=== PATIENT | female | born 1965 | race Caucasian/White ===

== ENCOUNTER 2023-02-21 02:57 | Emergency (ER) | payer MEDICAID ==
[~2023-02-21] VITALS: Ht 157.5 cm; Wt 56.0 kg
[2023-02-21 03:47] VITALS: BP 125/60; PULSE 106; RESP 18; TEMP 98.9; O2SAT 98
[2023-02-21 06:31] LABS: BASOPHILS % 0.4 % (0.0-2.0); EOSINOPHILS % 1.5 % (0.0-5.0); HEMATOCRIT. 44.4 % (36.0-48.0); HEMOGLOBIN. 14.7 g/dL (12.0-16.0); LYMPHOCYTES % 27.6 % (20.0-50.0); MEAN CORPUSCULAR HEMOGLOBIN 28.7 pg (28.0-32.0); MEAN CORPUSCULAR HGB CONC 33.1 g/dL (31.0-37.0); MEAN CORPUSCULAR VOLUME 86.5 fL (81.0-99.0); MEAN PLATELET VOLUME 8.9 fl (7.4-10.4); MONOCYTES % 6.3 % (2.0-8.0); NEUTROPHILS % 64.2 % (40.0-76.0); PLATELET 261 x1000/uL (130-400); RED BLOOD CELL COUNT 5.13 mill/uL (4.2-5.4); RED CELL DISTRIBUTION WIDTH 14.5 % (11.6-14.6)
[2023-02-21 06:35] LABS: CHLORIDE 107 mEq/L (98-107); INDEX HEMOLYSI 1 (1-3); INDEX ICTERIC 1 (1-4); INDEX LIPEMIC 1 (1-3); POTASSIUM 3.5 mEq/L (3.5-5.1); SODIUM 136 mEq/L (136-145)
[2023-02-21 06:50] LABS: ALANINE AMINOTRANSFERASE 30 IU/L (13-61); ALBUMIN 3.7 g/dL (3.4-5.0); ASPARTATE AMINOTRANSFERASE 22 IU/L (15-37); BILIRUBIN TOTAL 0.7 mg/dL (0.1-1.0); CALCIUM 8.9 mg/dL (8.5-10.1); CARBON DIOXIDE 26 mEq/L (21-32); CREATININE 0.4 mg/dL (0.6-1.3); GLUCOSE 137 mg/dL (70-105); PROTEIN TOTAL 7.6 g/dL (6.0-8.3); UREA NITROGEN BLOOD 9 mg/dL (7-21)
[2023-02-21 06:51] LABS: TROPONIN I HIGH SENSITIVITY < 4 ng/L (<54)
== END 2023-02-21 07:39 | disposition home or self-care (01) ==
LOC: ER 02:57
DX: I10 Essential (primary) hypertension (principal); F32.9 Major depressive disorder, single episode, unspecified; E11.9 Type 2 diabetes mellitus without complications; Z98.890 Other specified postprocedural states
CPT/HCPCS: 36415; 71045; 80053; 84484; 85025; 99284

== ENCOUNTER 2023-08-30 15:36 | Emergency (ER) | payer MEDICAID ==
[~2023-08-30] VITALS: Ht 157.5 cm; Wt 57.0 kg
[2023-08-30 15:59] VITALS: TEMP 98.2; O2SAT 97
[2023-08-30] MEDS: HYDROCODONE/ACETAMINOPHEN 5/325MG TABLET PO STA (17:30)
[2023-08-30] MEDS ORDERED: NAPR-681 PO (17:31)
[2023-08-30] MEDS ORDERED: HYDR-4001 MT (17:31)
[2023-08-30 19:07] VITALS: BP 136/67; PULSE 106; RESP 16
== END 2023-08-30 19:08 | disposition home or self-care (01) ==
LOC: ER 15:36
DX: S52.591A Other fractures of lower end of right radius, initial encounter for closed fracture (principal); S93.692A Other sprain of left foot, initial encounter; W18.39XA Other fall on same level, initial encounter; Y93.89 Activity, other specified; Y92.89 Other specified places as the place of occurrence of the external cause; Y99.8 Other external cause status
CPT/HCPCS: 29125; 73110; 73630; 99284; A4565